=== PATIENT | female | born 1990 | race American Indian/Alaskan Native ===

== ENCOUNTER 2016-11-10 17:19 | Emergency (ER) | payer SELFPAY ==
[2016-11-10 17:33] VITALS: BP 128/87
[2016-11-10] MEDS ORDERED: DUONEB *Not for PRN Use IH ONE (21:53)
--- NOTE | 2016-11-10 22:16 | Emergency Department Report ---
ED Asthma HPI - General Chief Complaint: Adult Asthma Stated Complaint: ASTHMA/CP/ANKLE PAIN Time Seen by Provider: 11/10/16 21:51 Source: patient Mode of arrival: Ambulatory Limitations: No Limitations - History of Present Illness Initial Comments: This is s 26-year-old female well-nourished with nontoxic or ill in appearance and the presents with asthma exacerbation, nonproductive cough, chest pain during cough and movement, and right ankle pain. Patient stated she took albuterol during asthma exacerbation with moderate relief. Patient describes chest pain as aching only during cough. Patient denies any radiation of chest pain. Denies shortness of breath, jaw pain, fever, chills, stiff neck, headache , blurry vision, bowel pain, nausea or vomiting. Patient denies numbness or tingling. Patient denies productive cough. 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 Patient denies any allergies. Denies significant past medical history but asthma. Denies calf pain or tendeness. Denies recent travels or long care rides. Patient complains of right ankle times one week. Patient stated while she was walking she had a inverted twist. Patient denies any trauma. Denies limited range of motion. Denies numbness or tingling. Denies cold to touch. Denies joint swelling or joint redness. Stated has normal gait. Discussed pain as 7 out of 10 that is aching in quality. Complaint: "asthma attack", shortness of breath -: Gradual, week(s) (1) Asthma History: childhood onset Severity: mild Context: none known Associated Symptoms: dry cough. denies: productive cough, fever, chest pain, hemoptysis, leg edema, syncope Treatments Prior to Arrival: inhaled bronchodilator - Related Data Current Asthma Therapy: inhaled bronchodilator Previous Rx's Medication Instructions Recorded Last Taken Type predniSONE [Deltasone] 20 mg PO BID #10 tab 11/10/16 Unknown Rx Allergies Allergy/AdvReac Type Severity Reaction Status Date / Time No Known Allergies Allergy Unverified 11/10/16 17:33 ED Review of Systems ROS: Stated complaint: ASTHMA/CP/ANKLE PAIN Other details as noted in HPI Constitutional: denies: chills, fever Eyes: denies: eye pain, eye discharge, vision change ENT: denies: ear pain, throat pain Respiratory: denies: cough, shortness of breath, wheezing Cardiovascular: denies: chest pain, palpitations Endocrine: no symptoms reported Gastrointestinal: denies: abdominal pain, nausea, diarrhea Genitourinary: denies: urgency, dysuria, discharge Musculoskeletal: denies: back pain, joint swelling, arthralgia Skin: denies: rash, lesions Neurological: denies: headache, weakness, paresthesias Psychiatric: denies: anxiety, depression Hematological/Lymphatic: denies: easy bleeding, easy bruising ED Past Medical Hx - Past Medical History Previous Medical History?: Yes Hx Asthma: Yes - Surgical History Past Surgical History?: No - Social History Smoking Status: Current Some Day Smoker Substance Use Type: Alcohol - Medications Home Medications: Home Medications Medication Instructions Recorded Confirmed Last Taken Type predniSONE [Deltasone] 20 mg PO BID #10 tab 11/10/16 Unknown Rx ED Physical Exam - General Limitations: No Limitations General appearance: alert, in no apparent distress - Head Head exam: Present: atraumatic, normocephalic, normal inspection - Eye Eye exam: Present: normal appearance, PERRL, EOMI. Absent: scleral icterus, conjunctival injection, nystagmus, periorbital swelling, periorbital tenderness Pupils: Present: normal accommodation - ENT ENT exam: Present: normal exam, normal orophraynx, mucous membranes moist, TM's normal bilaterally, normal external ear exam - Neck Neck exam: Present: normal inspection, full ROM. Absent: tenderness, meningismus, lymphadenopathy, thyromegaly - Respiratory Respiratory exam: Present: normal lung sounds bilaterally. Absent: respiratory distress, wheezes, rales, rhonchi, stridor, chest wall tenderness, accessory muscle use, decreased breath sounds, prolonged expiratory - Cardiovascular Cardiovascular Exam: Present: regular rate, normal rhythm, normal heart sounds, other (no producible chest pain. Denies chest wall tenderness.). Absent: bradycardia, tachycardia, irregular rhythm, systolic murmur, diastolic murmur, rubs, gallop - GI/Abdominal GI/Abdominal exam: Present: soft, normal bowel sounds. Absent: distended, tenderness, guarding, rebound, rigid, diminished bowel sounds - Rectal Rectal exam: Present: deferred - Extremities Exam Extremities exam: Present: normal inspection, full ROM, normal capillary refill. Absent: tenderness, pedal edema, joint swelling, calf tenderness - Back Exam Back exam: Present: normal inspection, full ROM. Absent: tenderness, CVA tenderness (R), CVA tenderness (L), muscle spasm, paraspinal tenderness, vertebral tenderness, rash noted - Neurological Exam Neurological exam: Present: alert, oriented X3, CN II-XII intact, normal gait, reflexes normal - Psychiatric Psychiatric exam: Present: normal affect, normal mood - Skin Skin exam: Present: warm, dry, intact, normal color. Absent: rash ED Course Vital Signs 11/10/16 11/10/16 11/10/16 17:28 22:14 22:30 Temperature 97.5 F L Pulse Rate 63 Pulse Rate [ 78 78 Posterior Bilateral Throughout] Respiratory 16 Rate Respiratory 19 19 Rate [Posterior Bilateral Throughout] Blood Pressure 128/87 O2 Sat by Pulse 100 Oximetry - Reevaluation(s) Reevaluation #1: 11/10/16 22:30 Patient is talking in full sentences with no signs of distress noted. Reevaluation #2: 11/10/16 23:11 Patient stated she feels much better. No signs of distress ntoed. ED Medical Decision Making - Lab Data Result diagrams: 11/10/16 22:32 11/10/16 22:32 - Medical Decision Making Ed course: This is a 26-year-old female that presents with asthma exacerbation and possible nondisplaced distal tibia rx 1- patient was examined by myself. Cardiac workup has been performed with no signs of cardiac abnormallities. CXR normal and was dictated by radiology. Patient was instrcuted of the xray findings with no further questions noted by the patient. 2- patient received DuoNeb & solu-Medrol and ED. Patient stated feels much better. 3- patient received prednisone and some of discharge. 4- patient was instructed to follow-up with her primary care doctor in 24 hours or symptoms such as short of breath, wheezing, chest pain, numbness, tingling, fever, stiff neck, headache returns to emergency room as soon as possible.. 5- at time time of discharge, the patient does not seem toxic or ill in appearance. No acute signs of distress noted. Patient agrees to discharge treatment plan of care. No further questions noted by the patient. 6- Patient recevied splint and was instructed to f/u with Dr. Medrano within 24 hours. Pt was also instrcuyted to RICE therapy 7- Post splint has been examined by myself. Patient denies any numbness or tingling. Denies splint being too tight. Patient is able to move digits freely. Warm to touch. Normal capillary refill. Critical care attestation.: If time is entered above; I have spent that time in minutes in the direct care of this critically ill patient, excluding procedure time. ED Disposition Clinical Impression: Asthma exacerbation Fracture of distal end of tibia Qualifiers: Encounter type: initial encounter Fracture type: closed Fracture morphology: unspecified fracture morphology Laterality: right Qualified Code(s): S82.301A - Unspecified fracture of lower end of right tibia, initial encounter for closed fracture Disposition: TO HOME OR SELFCARE Is pt being admited?: No Does the pt Need Aspirin: No Condition: Stable Instructions: Prednisone (By mouth), Asthma (ED), Ankle Fracture (ED), Splint Care (ED), Ankle Stirrup Splint (ED) Additional Instructions: Rest, elevate, and ice ankle region. Follow-up with Dr. Medrano or another orthopedic doctor in 24 hours. Keep taking albuterol that was prescribed to her by a primary care doctor as needed during asthma exacerbation. Take Prednisone as prescribed. follow-up with your primary care doctor in 24 hours or symptoms such as short of breath, wheezing, chest pain, numbness, tingling, fever, stiff neck, headache returns to emergency room as soon as possible. Prescriptions: predniSONE [Deltasone] 20 mg PO BID #10 tab Referrals: [facility] [Outside] - 3-5 Days [facility] [Outside] - 3-5 Days BRIANNA WILSON JR, MD [Staff Physician] - 3-5 Days PRIMARY JUANITA, [Primary Care Provider] - 3-5 Days JB MEDRANO MD [Staff Physician] - 24 Hours Forms: Work/School Release Form(ED), Accompanied Note
--- NOTE | 2016-11-10 22:53 | XRay Report ---
FINAL REPORT EXAM: XR ANKLE 3 RT HISTORY: right ankle pain s/p inversion TECHNIQUE: Right ankle three views 3 images PRIORS: None. FINDINGS: Bone mineralization appears within normal limits. There is slightly irregular contour in cortex of the posterior aspect of the distal tibia. No gross abnormality is seen in the soft tissues. IMPRESSION: 1. Possible nondisplaced fracture of the posterior aspect of the distal tibia.
[2016-11-10 22:55] LABS: Basophils % (Auto) 0.1 % (0.0-1.8); Eosinophils % (Auto) 1.6 % (0.0-4.3); Hematocrit 40.3 % (30.3-42.9); Hemoglobin 13.2 gm/dl (10.1-14.3); Mean Corpuscular HGB Conc 33 % (30-34); Mean Corpuscular Hemoglobin 28 pg (28-32); Mean Corpuscular Volume 85 fl (79-97); Platelet Count 252 K/mm3 (140-440); Red Blood Count 4.72 M/mm3 (3.65-5.03); Red Cell Distribution Width 13.4 % (13.2-15.2); White Blood Count 7.5 K/mm3 (4.5-11.0)
--- NOTE | 2016-11-10 23:00 | XRay Report ---
FINAL REPORT EXAM: XR CHEST ROUTINE 2V HISTORY: chest pain TECHNIQUE: PA and lateral chest radiographs PRIORS: None. FINDINGS: No focal consolidations are seen in the lungs and there are no pleural effusions.The cardiomediastinal silhouette is within normal limits for size and contour. No acute osseous abnormality is identified. IMPRESSION: 1. No definite radiographic evidence of acute cardiopulmonary disease.
[2016-11-10 23:08] LABS: Creatine Kinase MB 1.7 ng/mL (0.0-4.0)
[2016-11-10 23:10] LABS: Alanine Aminotransferase 16 units/L (7-56); Albumin 4.3 g/dL (3.9-5); Albumin/Globulin Ratio 1.3 %; Alkaline Phosphatase 63 units/L (35-129); Anion Gap 16 mmol/L; Blood Urea Nitrogen 10 mg/dL (7-17); Calcium 8.8 mg/dL (8.4-10.2); Carbon Dioxide 26 mmol/L (22-30); Chloride 99.2 mmol/L (98-107); Creatine Kinase 290 units/L (30-135); Glucose 133 mg/dL (65-100); Sodium 138 mmol/L (137-145); Total Protein 7.5 g/dL (6.3-8.2)
[2016-11-10 23:13] LABS: Bilirubin,Direct < 0.2 mg/dL (0-0.2); Bilirubin,Indirect 0.3 mg/dL
== END 2016-11-11 00:53 | disposition home or self-care (01) ==
LOC: ED 17:19
DX: S82.301A Unspecified fracture of lower end of right tibia, initial encounter for closed fracture (principal); J45.901 Unspecified asthma with (acute) exacerbation; F17.200 Nicotine dependence, unspecified, uncomplicated; X50.1XXA Overexertion from prolonged static or awkward postures, initial encounter; Y93.89 Activity, other specified; Y92.89 Other specified places as the place of occurrence of the external cause
CPT/HCPCS: 29515; 36415; 71020; 73610; 80048; 80074; 82550; 82553; 84484; 84703; 85025; 93005; 93010; 94640; 96372; 99284; J2930